=== PATIENT | male | born 1965 | race Hispanic/Latino ===

== ENCOUNTER → 2018-11-12 | Day surgery (SDC) | payer OTHER ==
[~2018-11-12] MED LIST: MIDAZOLAM HCL 2 MG/2 ML VIAL ONE; OMEGA 3 1,0001 EACH PO; OXAPROZIN600 MG PO; VALACYCLOVIR500 MG PO; VIT D3 PO
[2018-11-12 11:48] VITALS: BP 108/80
== END | disposition home or self-care (01) ==
LOC: OR 08:26
PROVIDERS: ATTEND Internal Medicine
DX: R10.32 Left lower quadrant pain (principal); K76.0 Fatty (change of) liver, not elsewhere classified; K64.0 First degree hemorrhoids; M19.90 Unspecified osteoarthritis, unspecified site; F17.210 Nicotine dependence, cigarettes, uncomplicated; Z01.810 Encounter for preprocedural cardiovascular examination
CPT/HCPCS: 45380; 93005; J2250